=== PATIENT | male | born 1960 | race Caucasian/White ===

== ENCOUNTER 2016-08-29 10:29 | Emergency (ER) | payer MEDICARE ==
[~2016-08-29] VITALS: Ht 175.3 cm; Wt 88.6 kg
[~2016-08-29 10:29] MED LIST: ASA325 PO; OXYC5TAB72 PO
[2016-08-29 10:45] VITALS: BP 158/98; PULSE 89; RESP 24; O2SAT 98
--- NOTE | 2016-08-29 10:51 | ED.REPORT ---
HPI-Trauma Minor / Fall Date of Service August 29, 2016 ED Provider: Silvestre Millard MD The patient is a 55 year old male who presents to the emergency department complaining of left shoulder pain that began this morning at 0230 this morning after he fell. The patient tried to get up from a chair and caught himself with his left arm and his shoulder rotated in a "weird way." Most of his pain is located to the front of his left shoulder. His pain is exacerbated with movement and range of motion. He denies any other injuries or trauma. Nursing Notes Stated Complaint: LEFT ARM PAIN Chief Complaint: Extremity Trauma Nursing Notes Reviewed: Yes Allergies: Coded Allergies: Benzodiazepines (Verified Allergy, Intermediate, 08/29/16) clonazepam (Verified Allergy, Unknown, Shortness of Breath, 08/08/14) Scheduled Aspirin-Expunged Drug, Do Not Renew! (Aspirin-Expunged Drug, Do Not Renew!) 325 Mg Tablet 325 MG PO PRN oxyCODONE-Expunged, Do Not Renew! (oxyCODONE-Expunged, Do Not Renew!) 5 Mg Tablet 5 MG PO TID General Time Seen by MD: 10:46 Chief Complaint Fall, Extremity pain (left shoulder) Hx Obtained From: Patient Arrived By: Walk-in Onset Occurred: 9 - 12 hours ago Symptom Duration: Since onset Caused by: Fall on ground Location: Shoulder left Quality: Painful Severity: Current: Moderate Severity: Maximum: Severe Recent Healthcare: No recent hospitalization Similar Sx Previous: No Past Medical History Past Medical History hx of episcleritis Chronic pain Past Surgical History none reported Family History Reviewed, not relevant Smoking History Unknown if Ever Smoker Social History Drug Use: In recovery Other Social History: Local resident Ambulatory Status Independent Review of Systems Musculoskeletal: Reports: Extremity pain, Joint pain Neurologic: Denies: Headache Complete sys rev & neg: except as marked. Cardiovascular: Denies: Chest pain GI: Denies: Abdominal pain Physical Exam Initial Vital Signs Vital Signs (First) Date Time Temp Pulse Resp B/P Pulse Ox O2 Delivery O2 Flow Rate FiO2 08/29/16 10:45 36.5 89 24 158/98 98 Room Air Initial VS: Reviewed Head / Eyes: Atraumatic, Normocephalic, PERRL ENT: Mucous membranes moist, Conjunctiva normal, No scleral icterus Respiratory: No respiratory distress Extremities: Vascular intact, Neuro intact Skin: Warm, Dry, No cyanosis Neurologic: Alert, Oriented, Nonfocal Psychiatric: Mood/affect normal, Behavior normal, Normal thought content General/Constitutional: Awake, Alert, Cooperative Neck: Atraumatic, Supple, Full range of motion, No swelling, Non-tender, No midline vertebral tend Upper Extremity / MS: Neurologic intact, Vascular intact Left shoulder: Pain with range of motion especially with external rotation, although he does have full range of motion. No laxity. Full strength. No deformity. Neurovascular intact. Left elbow, forearm, wrist, and hand are atraumatic. Right upper extremity atraumatic. Interpretation & Diagnostics X-Ray Interpretation Xray Interpretation: IMPRESSION: 1. No acute bony abnormality. 2. Mild acromioclavicular joint degeneration. Dictated by: Alexandro Feliciano M.D. on 08/29/2016 at 12:01 X-Ray Ordered: Shoulder left Interpretation / Wet Read by: Interpret - Radiologist Re-Eval/Medical Decision Source of Hx: Old records Re-Evaluation/Progress : Time of Eval: 12:46 Re-Evaluation/Progress Note: Discussed results, diagnosis, and plan for discharge. All questions were addressed. Counseled Regarding: Diagnosis, Need for follow-up, When/why to return to ED Discharge & Departure Impression: Primary Impression: Injury of left shoulder Encounter type: initial encounter Qualified Code: S49.92XA - Unspecified injury of left shoulder and upper arm, initial encounter Disposition: Home Discharge Condition All VS Reviewed: Yes Condition: Stable Patient Instructions: Shoulder Sprain (ED) Additional Instructions: Thank you for entrusting us with your care today. Your x-ray today is reassuring. There is no evidence of any fractures. Use ibuprofen 800 mg every 8 hours regularly for your pain. Apply ice to the painful areas. Do not apply ice for more than 40 minutes at a time. If your pain continues you may need to have an MRI. You can see your regular doctor for this. I would call their office today to schedule an appointment for next week. Return to the emergency department for any new or concerning symptoms. Referrals: NOPCP (PCP) Scribe Attestation Portions of this note were transcribed by Bethanie Jain. I, Dr. Millard personally performed the history, physical exam and medical decision-making; I reviewed and confirmed the accuracy of the information in the transcribed note. Signed by: Wilma Albrecht, 08/29/2016 at 1310. Silvestre Millard MD August 29, 2016 10:50 Bethanie Jain August 29, 2016 10:59
--- NOTE | 2016-08-29 12:08 | DRSVH ---
PROCEDURE: X-RAY LEFT SHOULDER, MINIMUM TWO VIEWS ([id number]) INDICATIONS: pain/unable to use TECHNIQUE: 3 views of the shoulder were acquired. COMPARISON: [facility], , SHOULDER MIN 2VW (LT), 09/25/2011, 11:01. FINDINGS: Bones: No fractures or dislocations. There is mild acromioclavicular joint degeneration. No suspic ious bony lesions. Visualized ribs appear intact. Soft tissues: No suspicious soft tissue calcifications. IMPRESSION: 1. No acute bony abnormality. 2. Mild acromioclavicular joint degeneration. Dictated by: Alexandro Feliciano M.D. on 08/29/2016 at 12:01 Approved by: Alexandro Feliciano M.D. on 08/29/2016 at 12:07
== END 2016-08-29 12:57 | disposition home or self-care (01) ==
LOC: SED 10:29
DX: S49.82XA Other specified injuries of left shoulder and upper arm, initial encounter (principal); W18.39XA Other fall on same level, initial encounter; Y93.89 Activity, other specified; Y92.89 Other specified places as the place of occurrence of the external cause; Y99.8 Other external cause status; Z88.8 Allergy status to other drugs, medicaments and biological substances
CPT/HCPCS: 73030; 96372; 99284; J1885